=== PATIENT | male | born 1950 | race Caucasian/White ===

== ENCOUNTER → 2016-05-28 | Outpatient (CLI) | payer OTHER | LOC: FIMAGING 10:35 | PROVIDERS: ATTEND Orthopaedic Surgery | DX: I82.441 Acute embolism and thrombosis of right tibial vein (principal) ==

== ENCOUNTER → 2018-02-12 | Outpatient (CLI) | payer OTHER | LOC: FIMAGING 12:09 | PROVIDERS: ATTEND Orthopaedic Surgery | DX: I82.811 Embolism and thrombosis of superficial veins of right lower extremity (principal) ==